=== PATIENT | male | born 1960 | race Asian ===

== ENCOUNTER 2017-03-13 06:25 | Day surgery (SDC) | payer BC ==
[~2017-03-13] VITALS: Ht 162.6 cm; Wt 82.1 kg
[2017-03-13] MEDS ORDERED: lisinopril (06:47)
[2017-03-13 06:49] VITALS: Ht 162.6 cm; Wt 82.1 kg
[2017-03-13] MEDS ORDERED: NASONEX (07:00)
[2017-03-13] MEDS ORDERED: VOLTARIN (07:00)
[2017-03-13] MEDS ORDERED: MULTIVITAMINS (07:00)
[2017-03-13] MEDS ORDERED: HERBAL SUPPLEMENTS (07:00)
[2017-03-13] MEDS ORDERED: [UNRECOGNIZED DRUG - OTHER] (07:00)
[2017-03-13] MEDS ORDERED: EYE DROPS (07:00)
[2017-03-13] MEDS ORDERED: GABAPENTIN (07:00)
[2017-03-13] MEDS ORDERED: CITALOPRAM (07:00)
[2017-03-13] MEDS ORDERED: [UNRECOGNIZED DRUG - OTHER] (07:00)
[2017-03-13] MEDS ORDERED: CLARITAN (07:00)
[2017-03-13 07:28] VITALS: BP 138/84; PULSE 54; RESP 16
[2017-03-13 08:33] VITALS: BP 128/76; PULSE 51; RESP 12
[2017-03-13] MEDS ORDERED: FENTAnyl 50 MCG/ML VIAL ONE (08:40)
[2017-03-13] MEDS ORDERED: MIDAZOLAM 1 MG/ML 2 ML INJ ONE (08:40)
[2017-03-13 08:58] VITALS: BP 119/77; PULSE 54; RESP 18
--- NOTE | 2017-03-13 10:42 | GILP ---
DATE OF PROCEDURE: 03/13/2017 PROCEDURE PERFORMED: Esophagogastroduodenoscopy and biopsy. SURGEON: Dr. Lyn Fofana. PREOPERATIVE DIAGNOSIS: Chronic heartburn. POSTOPERATIVE DIAGNOSES: 1. Hiatal hernia. 2. Reflux esophagitis with erosions. 3. Gastritis with erosions. 4. Gastric mucosal biopsies were taken for Helicobacter pylori test. INDICATION: Mr. Mir Yun is a 56-year-old male patient who had chronic heartburn not responding to therapy. The patient was scheduled for endoscopic examination for further evaluation. The procedure and possible complications were well explained to the patient. The patient understood and consented to the procedure. DESCRIPTION OF PROCEDURE: Under influence of fentanyl and Versed, the gastroscope was carefully introduced into the esophagus and under direct vision it was advanced to the stomach, into the pylorus, into the duodenal bulb, and descending duodenum. FINDINGS: Esophagus: The patient had hiatal hernia with reflux esophagitis and erosions. Stomach: The patient had gastritis with erosions. Gastric mucosal biopsies were taken for H pylori test. Duodenum was normal. The patient tolerated the procedure very well. There was no complication from the procedure. At the end of the procedure, the patient was awake with stable vital signs and he was discharged home in care of his family. IMPRESSION: 1. Hiatal hernia. 2. Reflux esophagitis with erosions. 3. Gastritis with erosions. 4. Gastric mucosal biopsies were taken for Helicobacter pylori test. PLAN: 1. Nexium 24 hours p.o. in the morning. 2. Await H pylori test report. Dictated By: MD BETSY Keller/carol/stephy /Document#: [id number] CC: Lyn Fofana MD;*[facility]*
== END 2017-03-13 10:44 | disposition home or self-care (01) ==
LOC: GIL 06:25
PROVIDERS: ATTEND Internal Medicine Gastroenterology
DX: K44.9 Diaphragmatic hernia without obstruction or gangrene (principal); K21.0 Gastro-esophageal reflux disease with esophagitis; K29.60 Other gastritis without bleeding
CPT/HCPCS: 43239; 87081; J2250; J3010; Z7610

== ENCOUNTER 2017-07-24 15:59 | Day surgery (SDC) | payer BC ==
[~2017-07-24] VITALS: Ht 162.6 cm; Wt 82.0 kg
[~2017-07-24 15:59] MED LIST: CITALOPRAM; CLARITAN; EYE DROPS; GABAPENTIN; HERBAL SUPPLEMENTS; MULTIVITAMINS; NASONEX; VOLTARIN; [UNRECOGNIZED DRUG - OTHER]; [UNRECOGNIZED DRUG - OTHER]; lisinopril
[2017-07-24 16:32] VITALS: Ht 162.6 cm; Wt 82.0 kg
[2017-07-24 17:01] VITALS: BP 136/79; PULSE 76; RESP 17
--- NOTE | 2017-07-24 17:31 | OPPN ---
Date/Time of Note Date/Time of Note DATE: 07/24/17 TIME: 17:30 Operative Report Preoperative Diagnosis Rectal bleeding Postoperative Diagnosis Small transverse colon polyp was removed Diverticulosis of the colon Internal hemorrhoids Operation/Procedure Performed Colonoscopy and biopsy Surgeon see signature line cashier assistant None Anesthesia: moderate sedation Estimated blood loss: none Transfusion Required none Specimen Transverse colon polyp Grafts/Implants none Complications none IVETH JAIMES MD Jul 24, 2017 17:31
[2017-07-24 18:00] VITALS: BP 135/76; PULSE 78; RESP 19
[2017-07-24] MEDS ORDERED: FENTAnyl 50 MCG/ML VIAL ONE (18:10)
[2017-07-24] MEDS ORDERED: MIDAZOLAM 1 MG/ML 2 ML INJ ONE ×2 (18:10)
--- NOTE | 2017-07-24 22:33 | GILP ---
DATE OF PROCEDURE: NAME OF PROCEDURE: Colonoscopy and biopsy. SURGEON: Iveth Fofana MD PREOPERATIVE DIAGNOSIS: Rectal bleeding. POSTOPERATIVE DIAGNOSES: 1. Colonoscopy all the way to the cecum. 2. Small transverse colon polyp was removed using biopsy forceps. 3. Diverticulosis of the colon. 4. Internal hemorrhoids. INDICATION FOR THE PROCEDURE: Mr. Mir Yun is a 57-year-old male patient who had rectal blee ding. The patient was scheduled for colonoscopy for further evaluation. The procedure and possible complications were well explained to the patient, the patient understood and consented to the procedure. DESCRIPTION OF PROCEDURE: Under the influence of fentanyl and Versed, the colonoscope was carefully introduced in the rectum and under direct vision, it was advanced all the way to the cecum. FINDINGS: The patient had a small transverse colon polyp and it was removed using the biopsy forcep s. He was noted to have diverticulosis of the colon. He also had internal hemorrhoids. He tolerated the procedure very well and there was no complication from the procedure. At the end o f the procedure, he was awake with stable vital signs and he was discharged home to the care of his family. IMPRESSION: Please see postoperative diagnoses. PLAN: 1. Anusol-HC 2.5% cream at bedtime. 2. If the bleeding continues, may consider hemorrhoidectomy. 3. Next screening colonoscopy in 10 years. Dictated By: IVETH MEYER/NADIA Conf#: [id number] DID#: [id number] CC: ;*EndCC*
== END 2017-07-24 18:22 | disposition home or self-care (01) ==
LOC: GIL 15:59
PROVIDERS: ATTEND Internal Medicine Gastroenterology
DX: D12.3 Benign neoplasm of transverse colon (principal); K57.90 Diverticulosis of intestine, part unspecified, without perforation or abscess without bleeding; K64.8 Other hemorrhoids; I10 Essential (primary) hypertension
CPT/HCPCS: 45380; 88305; J2250; J3010; Z7610

== ENCOUNTER → 2018-03-27 | Outpatient (CLI) | END | disposition home or self-care (01) ==